=== PATIENT | female | born 1995 | race Caucasian/White ===

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

== ENCOUNTER 2021-07-14 17:57 | Emergency (ER) | payer BC ==
[2021-07-14 20:56] LABS: BUN/CREATININE RATIO 21 (0-10)
[2021-07-14 21:03] LABS: HEMOGLOBIN 13.6 gm/dl (12.3-15.3); RED BLOOD COUNT 4.89 M/UL (4.00-5.10); WHITE BLOOD COUNT 8.2 K/UL (4.5-11.0)
[2021-07-14] MEDS ORDERED: CLINDAMYCIN HC300 MG PO (21:38)
== END 2021-07-14 21:41 | disposition home or self-care (01) ==
LOC: ER1 17:57
PROVIDERS: Family Medicine
DX: L03.211 Cellulitis of face (principal); Z88.0 Allergy status to penicillin
CPT/HCPCS: 70487; 80048; 85025; 99284; J1885; Q9967

== ENCOUNTER → 2022-01-11 | Outpatient (CLI) | payer OTHER, BC ==
[~2022-01-11] MED LIST: CLINDAMYCIN HC300 MG PO; IBUPROFEN600 MG PO
== END ==
LOC: RAD 10:49
DX: M79.672 Pain in left foot (principal); M25.572 Pain in left ankle and joints of left foot; M25.562 Pain in left knee; M25.552 Pain in left hip; M25.512 Pain in left shoulder
CPT/HCPCS: 73030; 73502; 73562; 73610; 73630